=== PATIENT | male | born 1955 | race Caucasian/White ===

== ENCOUNTER 2018-02-09 15:53 | Emergency (ER) | payer OTHER ==
[~2018-02-09] VITALS: Ht 177.8 cm; Wt 94.3 kg
[~2018-02-09 15:53] MED LIST: CYCL10 PO; Coreg12.5 MG PO; HYDACE5 PO; HYDCHL12.5 PO; IBUP800 PO; LISI20 PO; NAPR500 PO; Norco 5-325 Ta1 EACH PO; OXYACE5T PO; PENVK500; Percocet 5-3251 EACH PO; RANI150 PO; TRAM50 PO
[2018-02-09] MEDS ORDERED: Robaxin500 MG PO (16:49)
[2018-02-09] MEDS ORDERED: Prednisone20 MG PO (16:49)
[2018-02-09] MEDS ORDERED: Voltaren100 GM TOP (16:49)
[2018-02-09] MEDS ORDERED: HYDR1TAB94 PO (16:49)
== END 2018-02-09 16:55 | disposition home or self-care (01) ==
LOC: ER 15:53
DX: G89.29 Other chronic pain (principal); M54.5 Low back pain; Z88.0 Allergy status to penicillin; I10 Essential (primary) hypertension; I25.10 Atherosclerotic heart disease of native coronary artery without angina pectoris; Z87.891 Personal history of nicotine dependence; Z87.01 Personal history of pneumonia (recurrent)
CPT/HCPCS: 96372; 99283; J1885

== ENCOUNTER 2019-08-02 10:48 | Emergency (ER) | payer OTHER ==
[~2019-08-02] VITALS: Ht 177.8 cm; Wt 95.2 kg
[~2019-08-02 10:48] MED LIST changes: +HYDR1TAB94 PO; +Prednisone20 MG PO; +Robaxin500 MG PO; +Voltaren100 GM TOP
[2019-08-02] MEDS ORDERED: LISI20 PO (11:04)
[2019-08-02] MEDS ORDERED: Azor 10-20 MG1 EACH PO (11:04)
[2019-08-02] MEDS ORDERED: Aspir 8181 MG PO (11:04)
[2019-08-02] MEDS ORDERED: Coreg25 MG PO (11:05)
[2019-08-02] MEDS ORDERED: Prednisone20 MG PO (11:59)
[2019-08-02] MEDS ORDERED: CYCL10 PO (11:59)
== END 2019-08-02 12:19 | disposition home or self-care (01) ==
LOC: ER 10:48
DX: M62.830 Muscle spasm of back (principal); I12.9 Hypertensive chronic kidney disease with stage 1 through stage 4 chronic kidney disease, or unspecified chronic kidney disease; N18.9 Chronic kidney disease, unspecified; Z87.891 Personal history of nicotine dependence; Z88.0 Allergy status to penicillin; Z79.899 Other long term (current) drug therapy; Z79.82 Long term (current) use of aspirin
CPT/HCPCS: 99283

== ENCOUNTER 2019-08-28 06:29 | Emergency (ER) | payer OTHER ==
[~2019-08-28] VITALS: Ht 177.8 cm; Wt 95.2 kg
[~2019-08-28 06:29] MED LIST changes: +Aspir 8181 MG PO; +Azor 10-20 MG1 EACH PO; +Coreg25 MG PO
[2019-08-28] MEDS ORDERED: CYCL10 PO (09:44)
[2019-08-28] MEDS ORDERED: Prednisone20 MG PO (09:44)
[2019-08-28] MEDS ORDERED: Norco 5-325 Ta1 EACH PO (09:44)
== END 2019-08-28 10:18 | disposition home or self-care (01) ==
LOC: ER 06:29
DX: M62.830 Muscle spasm of back (principal); I10 Essential (primary) hypertension; I25.10 Atherosclerotic heart disease of native coronary artery without angina pectoris; Z87.891 Personal history of nicotine dependence; Z88.0 Allergy status to penicillin; Z79.899 Other long term (current) drug therapy; Z79.82 Long term (current) use of aspirin; Z79.52 Long term (current) use of systemic steroids
CPT/HCPCS: 99283; A9270-GY; J1100

== ENCOUNTER 2021-02-14 07:40 | Emergency (ER) | payer OTHER ==
[~2021-02-14] VITALS: Ht 177.8 cm; Wt 93.0 kg
[~2021-02-14 07:40] MED LIST changes: +IBUP600 PO
== END 2021-02-14 08:45 | disposition home or self-care (01) ==
LOC: ER 07:40
DX: H61.23 Impacted cerumen, bilateral (principal); F17.210 Nicotine dependence, cigarettes, uncomplicated; Z79.899 Other long term (current) drug therapy
CPT/HCPCS: 69209; 99283-25; A9270

== ENCOUNTER 2025-04-21 18:47 | Emergency (ER) | payer MEDICARE ==
[~2025-04-21] VITALS: Ht 172.7 cm; Wt 69.0 kg
[~2025-04-21 18:47] MED LIST changes: +ALBU90OI INH; +AMLODIPINE BESY10 MG PO; +AZIT250 PO
[2025-04-21 18:56] VITALS: BP 165/78
== END 2025-04-21 20:54 | disposition home or self-care (01) ==
LOC: ER 18:47
DX: S01.01XA Laceration without foreign body of scalp, initial encounter (principal); I10 Essential (primary) hypertension; Z79.82 Long term (current) use of aspirin; Z79.899 Other long term (current) drug therapy; Z79.2 Long term (current) use of antibiotics; Z87.891 Personal history of nicotine dependence; W10.9XXA Fall (on) (from) unspecified stairs and steps, initial encounter
CPT/HCPCS: 70450; 72125; 90471; 90715; 93005; 93010; 99284-25

== ENCOUNTER 2025-09-14 09:53 | Emergency (ER) | payer MEDICARE ==
[~2025-09-14] VITALS: Ht 177.8 cm; Wt 97.5 kg
[2025-09-14 10:54] VITALS: BP 184/113
[2025-09-14] MEDS ORDERED: COLCHICINE0.6 MG PO (13:46)
[2025-09-14] MEDS ORDERED: Indomethacin50 MG PO (13:46)
[2025-09-14] MEDS ORDERED: Prednisone20 MG PO (13:46)
== END 2025-09-14 13:58 | disposition home or self-care (01) ==
LOC: ER 09:53
DX: M10.9 Gout, unspecified (principal); Z88.0 Allergy status to penicillin; Z79.82 Long term (current) use of aspirin; Z79.899 Other long term (current) drug therapy; I10 Essential (primary) hypertension; Z87.891 Personal history of nicotine dependence
CPT/HCPCS: 73610; 93971; 99283-25